=== PATIENT | female | born 1950 | race Caucasian/White ===

== ENCOUNTER 2017-06-19 19:10 | Inpatient (IN) | payer SELFPAY ==
[2017-06-19] MEDS ORDERED: ONDANSETRON DISINTEGRATING 4 MG TAB PO PRN (20:23)
[2017-06-19] MEDS ORDERED: HYDROmorphone HCL/NS 0.5 MG/ML SYR IVP PRN (20:23)
[2017-06-19] MEDS ORDERED: PROMETHAZINE HCL 25 MG/ML INJ IVP PRN (20:23)
[2017-06-19] MEDS ORDERED: ONDANSETRON 4 MG/2 ML VIAL IVP PRN (20:23)
[2017-06-19] MEDS ORDERED: ACETAMINOPHEN 325 MG TAB PO PRN (20:23)
--- NOTE | 2017-06-19 20:56 | GHP ---
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 She is close to [facility]. She presented to urgent care today with ongoing abdominal pain. In January of 2017, she was running a half marathon, and she had severe abdominal pain. She persever ed and finished the marathon, setting a personal record. However, when she returned to her hotel [facility], she had bloody diarrhea. This was chalked up to ischemic colitis given the clinical scenario and further imaging was not undertaken. She has a history of normal colonoscopies in the past. Over the last couple of months, she has had increasing abdominal pain. She has had retching. She jordan s had an inability to take deep breaths. She has had a cough in the morning. She has had some nause a. She feels her pants are bit looser. She has had a couple episodes the night sweats. She has no family history of cancer. She still has her ovaries. She has not been a smoker. She is done breast self-exams and had normal mammographies in the past. The last was 2 years ago. She has not had fever or chills. In urgent care today, she had a CT scan showing diffusely metastatic disease as evidenced by peritone al studding and a couple of subdiaphragmatic masses. When I speak with her, her primary complaint is pleuritic pain. Notably, she has been eating and dri nking reasonably well. REVIEW OF SYSTEMS: A complete 10-point review of systems was conducted and negative except as noted in the HPI. PAST MEDICAL HISTORY: 1. Depression. 2. Hypothyroidism. ALLERGIES: No known drug allergies. MEDICATIONS: Wellbutrin, Celexa, and levothyroxine. SOCIAL HISTORY: Occasional alcohol. No tobacco. 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 FAMILY HISTORY: Negative for cancer. PHYSICAL EXAMINATION: PRESENTING VITALS: Pulse about 85, blood pressure 120/80, breathing 16 times a minute, afebrile. GENERAL: No acute distress. Thin. HEENT: Sclerae anicteric. Oropharynx lubna r. Mucous membranes moist. NECK: Supple. No lymphadenopathy or JVD. LUNGS: Clear to auscultatio n bilaterally. HEART: S1, S2. ABDOMEN: Soft, nontender, nondistended. LOWER EXTREMITIES: Withou t edema. Calves are nontender. SKIN: Without rash. NEUROLOGIC: Exam is nonfocal. LABORATORY DATA: Her outpatient labs were notable for an elevated alkaline phosphatase. She had an outpatient CAT scan that was notable for peritoneal studding and subdiaphragmatic masses. I have discussed the case with the outpatient PA from [facility] in [place]. ASSESSMENT AND PLAN: A 66-year-old female, who presents with abdominal pain, likely diffuse metastat ic cancer, as well as pleuritic pain. 1. Pleuritic pain. In this context, concerning for pulmonary embolism. I have ordered a CT angio o f the chest to evaluate. 2. Peritoneal studding. The patient needs a tissue diagnosis. Her is going to bring in a C D ROM of the CAT scan, which can be reviewed by Radiology and planned for intervention. 3. Weight loss. This is attributable to the above process. 4. Hypothyroidism. We will continue her medication and check a TSH. 5. Prophylaxis. Pharmacologic prophylaxis is indicated, although I have written for SCDs now, given the likely upcoming procedures. DISPOSITION: Inpatient status. /[id number]/MODL
[2017-06-19] MEDS ORDERED: IOPAMIDOL (ISOVUE 370) 100 ML BTL IV ONE (21:31)
[2017-06-19] MEDS ORDERED: DIAZEPAM 5 MG/ML 1 ML SYR IVP PRN (21:39)
[2017-06-19] MEDS: HYDROmorphone HCL/NS 0.5 MG/ML SYR IVP PRN (22:28)
[2017-06-20] MEDS: HYDROmorphone HCL/NS 0.5 MG/ML SYR IVP PRN ×4 (00:29→14:53)
[2017-06-20] MEDS: oxyCODONE IR 5 MG TAB PO PRN ×5 (00:35→23:42)
[2017-06-20] MEDS: LEVOTHYROXINE 50 MCG TAB PO SCH (04:57)
[2017-06-20 05:35] LABS: PLATELET COUNT 401 10^3/uL (150-400)
[2017-06-20 05:44] LABS: INR 1.04 (0.83-1.16); PROTIME(PATIENT) 13.8 SEC (12.0-15.0)
[2017-06-20] MEDS: CITALOPRAM 20 MG TAB PO SCH (08:32)
[2017-06-20] MEDS: buPROPion XL 150 MG TAB PO SCH (08:33)
[2017-06-20] MEDS ORDERED: NON-FORMULARY NEW DRUG (Bupropion Hcl [Wellbutrin Xl] 300 MG) PO SCH (09:00)
[2017-06-20] MEDS ORDERED: NON-FORMULARY NEW DRUG (Citalopram Hydrobromide [Citalopram Hbr] 40 MG) PO SCH (09:00)
--- NOTE | 2017-06-20 09:10 | PDMN ---
Medical Necessity Medical necessity: [facility] oncology: New Dg. abd pain with likely diffuse metsastatic cancer as well as pleuritic pain req further eval , monitoring and tx.
--- NOTE | 2017-06-20 11:56 | HOSPPROG ---
Hospitalist Progress Note Assessment/Plan: 66 yo female who had abd and chest pain and a CT Abd/Pelvis at [facility] care c/w Peritoneal Studding New Imaging: CT Chest: no P.E., metastases to Lung (RML, RLL), Liver. #Malignancy, Metastatic #Acute Pain Syndrome #Hypothyroidism #Hx of Depression -I discussed with IR need for tissue Diagnosis. They will review imaging and obtain tissue diagnosis -Will obtain a Onc consultation -pain mgm: will add MS Contin to regimen -SCD's for now, can changed to Lovenox once procedures completed -Inpatient. Subjective: Pain is modestly controlled. No SOB. Objective: Vital Signs Temp Pulse Resp BP Pulse Ox 37.0 C 69 17 116/66 95 06/20/17 11:49 06/20/17 11:49 06/20/17 11:49 06/20/17 11:49 06/20/17 11:49 Laboratory Results 06/20/17 04:28 06/20/17 04:28 06/19/17 06/20/17 06/21/17 05:59 05:59 05:59 Intake Total 250 Output Total 900 Balance -650 PT 13.8 SEC (12.0-15.0) 06/20/17 04:28 INR 1.04 (0.83-1.16) 06/20/17 04:28 - Physical Exam Constitutional: no apparent distress Eyes: PERRL, EOMI Ears, Nose, Mouth, Throat: moist mucous membranes, hearing normal Cardiovascular: regular rate and rhythym, No edema Respiratory: no respiratory distress, no rales or rhonchi Gastrointestinal: normoactive bowel sounds, soft, non-tender abdomen Genitourinary: no bladder fullness Skin: warm Neurologic: AAOx3 Psychiatric: interacting appropriately, not anxious, not encephalopathic, thought process linear Lymph, Heme, Immunologic: No petechiae ICD10 Worksheet Patient Problems: Problems Problem Status Onset Malignancy Acute - ICD10 Problem Qualifiers (1) Malignancy
[2017-06-20] MEDS ORDERED: NS W/ 20 KCl/L 1,000 ML IV SCH (12:00)
--- NOTE | 2017-06-20 13:44 | ASMTCMCOM ---
CM Note CM Note Notes: Pt still being worked up for definitive diagnosis. She will have oncology consult. 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 They currently live in [place] and are building home in [place]. DC needs not clear yet. Pt has been living very independant, active life. CM will follow. Date Signed: 06/20/2017 01:44 PM Electronically Signed By:Dee Dee Soto RN
[2017-06-20] MEDS ORDERED: MIDAZOLAM 2 MG/2 ML VIAL ONE (15:31)
[2017-06-20] MEDS ORDERED: FLUMAZENIL 0.5 MG/5 ML MDV IVP ONE (15:31)
[2017-06-20] MEDS ORDERED: NALOXONE HCL 0.4 MG/ML INJ ONE (15:31)
[2017-06-20] MEDS ORDERED: fentaNYL 100 MCG/2 ML INJ ONE (15:31)
[2017-06-20] MEDS ORDERED: MEPERIDINE 25 MG/ML SYR IVP PRN (15:41)
[2017-06-20] MEDS ORDERED: MIDAZOLAM 2 MG/2 ML VIAL IVP PRN (15:41)
[2017-06-20] MEDS ORDERED: GLUCAGON HCL 1 MG VIAL IVP PRN (15:41)
[2017-06-20] MEDS ORDERED: ALTEPLASE 2 MG VIAL IVP PRN (15:41)
[2017-06-20] MEDS ORDERED: FLUMAZENIL 0.5 MG/5 ML MDV IVP PRN (15:41)
[2017-06-20] MEDS ORDERED: fentaNYL 100 MCG/2 ML INJ IVP PRN (15:41)
[2017-06-20] MEDS ORDERED: NALOXONE HCL 0.4 MG/ML INJ IVP PRN (15:41)
[2017-06-20] MEDS ORDERED: PROTAMINE SULFATE 50 MG/5 ML VIAL IVP PRN (15:41)
[2017-06-20] MEDS ORDERED: HEPARIN 10,000 UNIT/10 ML MDV (1,000 UNIT/ML) IVP PRN (15:41)
[2017-06-20] MEDS ORDERED: NS 1,000 ML IV SCH (15:45)
[2017-06-20] MEDS ORDERED: LIDOCAINE 1% 300 MG/30 ML SDV ONE (16:13)
--- NOTE | 2017-06-20 18:16 | GCON ---
[f rep st] CONSULTATION ONCOLOGY CONSULTATION REFERRING PHYSICIAN: Maulik Courtney MD REASON FOR VISIT: Liver mass and peritoneal lesion. 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 Symptoms s tarted for her back in January while she was running a marathon. She was having severe abdominal sudarshan n during the marathon, but was able to complete it with an excellent time. She had some bloody diarr hea afterwards, but then that resolved fairly rapidly. The pain also seemed to get better. She did not seek any further care since she otherwise was feeling fine at the time. She was doing well until March when she started training again for another marathon she started to have abdominal discomfo rt again. She has had occasional night sweats. Typically no nausea but occasionally some retching i n the morning, but only a few times. She denies any weight loss. She has actually gained about 5 po unds. She maybe had a little more constipation, but no other changes in bowel habits. No further bl ood in the stool. She has been getting routine colonoscopies, last one was about 6 years ago. Becau se of the increasing problems, she has sought out medical care and a CT scan was obtained which showe d what appeared to be peritoneal carcinomatosis and a mass in the liver. She is about to go for a bi opsy of the liver mass. ALLERGIES: She has no known drug allergies. HOME MEDICATIONS: Include citalopram, bupropion, and levothyroxine. CHRONIC ILLNESSES: She had severe depression in the past, but that is under good control, hypothyroi dism, and irritable bowel syndrome. SURGICAL HISTORY: Includes intussusception with an appendectomy at age 9 months. She has also had s ome repairs of injury such as fractured wrist, but no other abdominal surgeries. 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 Her is also a physician. She drinks a lcohol occasionally, generally beer, but does not smoke. FAMILY HISTORY: Mother at age 73 from cerebral hemorrhage secondary amyloidosis. Father a t age 89 from age related issues. She has 1 daughter. REVIEW OF SYSTEMS: 10-point review of systems performed. Pertinent positives HPI, otherwise negativ e. PHYSICAL EXAM: VITAL SIGNS: She is afebrile, blood pressure is 99/60, pulse is 67. GENERAL: She i s a well-appearing woman in no distress. HEENT: Unremarkable. LUNGS: Clear. CARDIAC: Regular. ABDOMEN: Relatively flat and soft. Little bit of fullness in the right upper quadrant, but nontende r. Bowel sounds are present. EXTREMITIES: No edema. NEUROLOGIC: Nonfocal. LABORATORY: Hemoglobin is 10.6 with MCV of 83. Chemistry panel was unremarkable. Outside CT was reviewed with Radiology and shows as per HPI. CT angiogram, which I reviewed with the patient, shows a least 1 clear lesion in the right middle lobe 23 x 17 mm. There is right lower lob e 12 x 11 mm nodule. In the upper abdomen, there are 2 liver lesions, one 6 x 5 cm, the other one 4. 6 x 4.7 cm. With reviewing the CT with Radiology, there is no clear-cut source of the malignancy at this time. IMPRESSION: 1. 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 2. Intermittent abdominal pain, possibly a partial obstruction, seems now resolved. I agree with the next step being a biopsy of this mass to try and get a better idea of what we are de aling with here. With the peritoneal carcinomatosis, GI and sources are highest likelihood. Her adnexa and pelvis look unremarkable, but cannot entirely rule out a primary peritoneal. However, typ ically these do not metastasize into the liver. This also could be atypical lesions such as well dif ferentiated neuroendocrine cancer such as carcinoid, but 1 would expect more flushing and diarrhea wi th a carcinoid syndrome. They asked whether or not a lymphoma is on the differential, and it is alth ough it would be an uncommon presentation. Other cancers that could present oddly include melanoma. If she tolerates the biopsy well and she is able the eat and move her bowels tomorrow, she could go home and can follow up. She is hoping to follow up Dr. Rock since she has [facility] past. /[id number]/MODL
--- NOTE | 2017-06-20 19:29 | PDRADPN ---
Radiology Procedure Note Date of Procedure: 06/20/17 Radiologist: Jordan Piña Anesthesia: IV Sedation Pre-op Diagnosis: Liver mass Post-op Diagnosis: Same Indication: Unknown primary Procedure: Liver mass biopsy Finding(s): 18-ga cores x6 taken from large right posterior liver mass. Tract embolized with gelfoam torpedos x3. Inf/Abcess present in the surg proc area at time of surgery?: No Complications: No immediate Specimen(s): 18-ga cores x6 placed in formalin
[2017-06-20] MEDS: morphINE SR 15 MG TAB PO SCH (20:29)
[2017-06-21] MEDS: LEVOTHYROXINE 50 MCG TAB PO SCH (04:45)
[2017-06-21] MEDS: oxyCODONE IR 5 MG TAB PO PRN ×2 (04:45→08:05)
[2017-06-21] MEDS: buPROPion XL 150 MG TAB PO SCH (08:05)
[2017-06-21] MEDS: morphINE SR 15 MG TAB PO SCH (08:05)
[2017-06-21] MEDS: CITALOPRAM 20 MG TAB PO SCH (08:05)
[2017-06-21 08:50] VITALS: BP 120/68; PULSE 86; RESP 15; TEMP 99.3; O2SAT 92
--- NOTE | 2017-06-21 10:20 | ASMTCMCOM ---
CM Note CM Note Notes: Pt ready for DC today following biopsy. Plan is to f/u with outpt oncologist, Dr Rock. Met brieflt with . No DC needs identified. Date Signed: 06/21/2017 10:19 AM Electronically Signed By:Leora Jay LCSW
--- NOTE | 2017-06-21 11:58 | PDDCSUM ---
Discharge Summary Discharge Summary: 66 yo female who had abd and chest pain and a CT Abd/Pelvis at [facility] care c/w Peritoneal Studding. CT Chest c/w no P.E., metastases to Lung (RML, RLL), Liver. She had liver biopsy on 06/21 pathology pending pain is well controlled she will f/u with Dr. Rock #Malignancy, Metastatic #Acute Pain Syndrome #Hypothyroidism #Hx of Depression PE. VSS NAD EOMI MMM AAOX3 NORMAL WORK OF BREATHING ABD DOES NOT APPEAR DISTENDED NO FOCAL WEAKNESS MEDS: SEE MED REC. TOTAL TIME SPENT ON D/C IS 35 MINUTES
== END 2017-06-21 11:05 | disposition home or self-care (01) | DRG 437 ==
LOC: F1N 19:21
PROVIDERS: ADMIT Internal Medicine; ATTEND Internal Medicine
PROC: 0FB03ZX Excision of Liver, Percutaneous Approach, Diagnostic (ICD-10-PCS; principal; 2017-06-21)
DX: C78.7 Secondary malignant neoplasm of liver and intrahepatic bile duct (principal); D48.4 Neoplasm of uncertain behavior of peritoneum; E03.9 Hypothyroidism, unspecified; G89.3 Neoplasm related pain (acute) (chronic); F32.9 Major depressive disorder, single episode, unspecified; R63.4 Abnormal weight loss
CPT/HCPCS: J1170; J2250; J2310; J3010; J3360; Q9967

== ENCOUNTER 2017-06-23 10:37 | Emergency (ER) | payer SELFPAY ==
[2017-06-23] MEDS ORDERED: IOPAMIDOL (ISOVUE 370) 100 ML BTL IV ONE (11:22)
--- NOTE | 2017-06-23 11:58 | EDPHY ---
H & P Stated Complaint: Sent in CTA of chest by oncologist to r/o PE Time Seen by Provider: 06/23/17 11:04 HPI/ROS: CHIEF COMPLAINT: Concerns over possible pulmonary embolus HISTORY OF PRESENT ILLNESS: 66-year-old female with recent diagnosis of possible peritoneal cancer ( pathology pending) with with metastases to lung, liver, arrives complaining of new right lower chest pain, dyspnea. Concerns over pulmonary embolus. She had recent hospitalization recent liver biopsy. She denies back or flank pain, headache, fever, chills. PRIMARY CARE PROVIDER: Primary Oncology Dr. 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 PHYSICAL EXAM (Prior to examination, patient consented to physical exam, hands were washed and my usual and customary physical exam procedures followed) 1) GENERAL: Well-developed, well-nourished, alert and oriented. Appears to be in no acute distress. Lying in a right lateral, position 2) HEAD: Normocephalic, atraumatic 3) HEENT: Pupils equal, round, reactive to light bilaterally. Sclera anicteric. 4) NECK: Full range of motion, no meningeal signs. 5) LUNGS: Clear auscultation bilaterally, no wheezes, no rhonchi, no retractions. Chest wall nontender. 6) HEART: Regular rate and rhythm, no murmur, no heave, no gallop. 7) ABDOMEN: No guarding, no rebound, no focal tenderness, negative McBurney's, negative Sue's, negative Rovsing's, negative peritoneal sign, 8) MUSCULOSKELETAL: Moving all extremities, no focal areas of tenderness, no obvious trauma. No peripheral edema or discoloration. 9) BACK: No CVA tenderness, no midline vertebral tenderness, no fluctuance, no step-off, no obvious trauma, no visual or palpable abnormality. 10) SKIN: No rash, no petechiae. 11) Psychiatric: Patient is oriented X 3, there is no agitation. 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 - Social History Smoking Status: Never smoked Constitutional: Initial Vital Signs Temperature (C) 37 C 06/23/17 10:45 Heart Rate 85 06/23/17 10:45 Respiratory Rate 18 06/23/17 10:45 Blood Pressure 118/72 06/23/17 10:45 O2 Sat (%) 86 L 06/23/17 10:45 O2 Delivery Mode Room Air O2 (L/minute) 2 Allergies/Adverse Reactions: No Known Allergies Allergy (Verified 06/23/17 10:52) Home Medications: Medication Instructions Recorded Bupropion HCl [Wellbutrin Xl] 300 mg PO DAILY 06/19/17 Citalopram Hydrobromide 40 mg PO DAILY 06/19/17 [Citalopram HBr] Levothyroxine [Synthroid 50 mcg 50 mcg PO DAILY06 06/19/17 (*)] Diazepam [Valium 5 MG (*)] 5 mg PO TID PRN #30 tab 06/21/17 Ondansetron Odt [Zofran Odt 4 mg 4 mg PO Q4HRS PRN #30 tab 06/21/17 (*)] morphINE SR [Ms Contin/Oramorph 15 15 mg PO TID #90 tab 06/21/17 mg (*)] oxyCODONE IR [Oxycodone Ir (*)] 5 - 10 mg PO Q3HRS PRN #40 tab 06/21/17 Acyclovir [Zovirax 400 mg (*)] 400 mg PO TID PRN 06/23/17 Medical Decision Making - Diagnostics Imaging Results: Imaging Impressions Chest/Thorax CTA 06/23/17 11:15 Impression: 1. No evidence of pulmonary embolic disease. 2. Increase in right lower lung opacity with associated right pleural effusion. This may reflect progression in atelectasis or possibly developing pneumonia. This could also reflect reaction to the liver biopsy. 3. See above report for additional findings. Results called and discussed with Julio C WALKER on 06/23/2017 12:31 Images reviewed by myself ED Course/Re-evaluation: 11:04 a.m.: Old medical records reviewed. High clinical suspicion for pulmonary embolus given patient's history of malignancy, complaints of dyspnea, right sided chest pain, noted hypoxia. Subsequently CT angiography was obtained on this patient. Case discussed with secondary supervising physician Dr. Bib Bond The patient was re-evaluated after discussing her imaging studies, we discussed her continuing hypoxia and pain. We discussed admission to the hospital. We discussed possible challenges of obtaining outpatient oxygen from the emergency department on a Saturday. Ultimately she agrees with hospital admission. I spoke with the hospitalist, Monique, admit to Dr. Hood 3:15 p.m.: Hospitalist Dr. Hood has consulted, see his note. After hospitals consulted the patient elected to be discharged home. The disease case manager rn attempted to get home oxygen delivery, however due to [id number] expenses the, elected to forego home oxygen at this time the patient would like to be discharged. I re-evaluated the patient she maintaining saturations of 87 % on room air, breathing comfortably show no signs of respiratory distress. Patient states that she will plan on following up with a primary care provider tomorrow (Saturday) and if she develops worsening pain, dyspnea she will return to the ER. Have offered admission however she declines it. 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 I believe them both to have decision- making capacity. - Data Points Laboratory Results: Laboratory Results 06/23/17 11:10 06/23/17 11:10 06/23/17 06/23/17 06/23/17 12:30 12:30 11:10 WBC RBC Hgb POC Hgb Hct POC Hct MCV MCH MCHC RDW Plt Count MPV Neut % (Auto) Lymph % (Auto) Barnes % (Auto) Eos % (Auto) Baso % (Auto) Nucleat RBC Rel Count Absolute Neuts (auto) Absolute Lymphs (auto) Absolute Monos (auto) Absolute Eos (auto) Absolute Basos (auto) Absolute Nucleated RBC Immature Gran % Immature Gran # POC Sodium Sodium 132 mEq/L L mEq/L (135-145) POC Potassium Potassium 4.4 mEq/L mEq/L (3.5-5.2) POC Chloride Chloride 95 mEq/L L mEq/L (97-110) Carbon Dioxide 27 mEq/l mEq/l (22-31) Anion Gap 10 mEq/L mEq/L (8-16) POC BUN BUN 10 mg/dL mg/dL (7-23) Creatinine 0.7 mg/dL mg/dL (0.6-1.0) POC Creatinine Estimated GFR > 60 Glucose 99 mg/dL mg/dL (70-100) POC Glucose Calcium 9.6 mg/dL mg/dL (8.5-10.4) Total Bilirubin 0.5 mg/dL mg/dL (0.1-1.4) Conjugated Bilirubin 0.3 mg/dL mg/dL (0.0-0.5) Unconjugated Bilirubin 0.2 mg/dL mg/dL (0.0-1.1) AST 30 IU/L IU/L (14-46) ALT 31 IU/L IU/L (9-52) Alkaline Phosphatase 141 IU/L H IU/L (38-126) Troponin I < 0.012 ng/mL ng/mL (0.000-0.034) Total Protein 6.9 g/dL g/dL (6.3-8.2) Albumin 3.8 g/dL g/dL (3.5-5.0) Lipase 58 IU/L IU/L (23-300) Procalcitonin 0.07 ng/mL ng/mL (0.02-0.10) 06/23/17 06/23/17 11:10 11:06 WBC 5.80 10^3/uL 10^3/uL (3.80-9.50) RBC 4.23 10^6/uL 10^6/uL (4.18-5.33) Hgb 11.3 g/dL L g/dL (12.6-16.3) POC Hgb 11.9 gm/dL L gm/dL (12.6-16.3) Hct 35.0 % L % (38.0-47.0) POC Hct 35 % L % (38-47) MCV 82.7 fL fL (81.5-99.8) MCH 26.7 pg L pg (27.9-34.1) MCHC 32.3 g/dL L g/dL (32.4-36.7) RDW 12.8 % % (11.5-15.2) Plt Count 449 10^3/uL H 10^3/uL (150-400) MPV 8.1 fL L fL (8.7-11.7) Neut % (Auto) 67.3 % % (39.3-74.2) Lymph % (Auto) 19.7 % % (15.0-45.0) Barnes % (Auto) 10.2 % % (4.5-13.0) Eos % (Auto) 1.6 % % (0.6-7.6) Baso % (Auto) 1.0 % % (0.3-1.7) Nucleat RBC Rel Count 0.0 % % (0.0-0.2) Absolute Neuts (auto) 3.91 10^3/uL 10^3/uL (1.70-6.50) Absolute Lymphs (auto) 1.14 10^3/uL 10^3/uL (1.00-3.00) Absolute Monos (auto) 0.59 10^3/uL 10^3/uL (0.30-0.80) Absolute Eos (auto) 0.09 10^3/uL 10^3/uL (0.03-0.40) Absolute Basos (auto) 0.06 10^3/uL 10^3/uL (0.02-0.10) Absolute Nucleated RBC 0.00 10^3/uL 10^3/uL (0-0.01) Immature Gran % 0.2 % % (0.0-1.1) Immature Gran # 0.01 10^3/uL 10^3/uL (0.00-0.10) POC Sodium 133 mEq/L L mEq/L (135-145) Sodium POC Potassium 4.0 mEq/L mEq/L (3.3-5.0) Potassium POC Chloride 93 mEq/L L mEq/L (97-110) Chloride Carbon Dioxide Anion Gap POC BUN 9 mg/dL mg/dL (7-23) BUN Creatinine POC Creatinine 0.8 mg/dL mg/dL (0.6-1.0) Estimated GFR Glucose POC Glucose 101 mg/dL H mg/dL (70-100) Calcium Total Bilirubin Conjugated Bilirubin Unconjugated Bilirubin AST ALT Alkaline Phosphatase Troponin I Total Protein Albumin Lipase Procalcitonin Point of Care Test Results: 06/23/17 11:06 POC Sodium 133 L POC Potassium 4.0 POC Chloride 93 L POC BUN 9 POC Creatinine 0.8 POC Glucose 101 H Departure - Departure Disposition: Home, Routine, Self-Care Clinical Impression: Hypoxemia, Right-sided chest pain Condition: Good Instructions: Hypoxia (ED) Referrals: DR VASHTI [Other] - As per Instructions
[2017-06-23 12:48] LABS: PLATELET COUNT 449 10^3/uL (150-400)
--- NOTE | 2017-06-23 13:39 | CPEKG ---
Heart Rate: 63 RR Interval: 952 P-R Interval: 144 QRSD Interval: 72 QT Interval: 412 QTC Interval: 422 P Wagner: 74 QRS Wagner: 68 T Wave Wagner: 58 EKG Severity - OTHERWISE NORMAL ECG - EKG Impression: SINUS RHYTHM EKG Impression: VENTRICULAR PREMATURE COMPLEX EKG Impression: LOW VOLTAGE IN FRONTAL LEADS Electronically Signed By: Kobe Kent 23-Jun-2017 18:33:53
--- NOTE | 2017-06-23 14:31 | PDHOSCONS ---
History and Physical - Chief Complaint Pleuritic right sided chest pain - History of Present Illness This is a 66 yo female well who was recently discharged from our service with a new diagnosis of metastatic malignancy, primary unknown. She had a liver biopsy for tissue sample. She has known diaphragmatic metastasis. In the E.D. a CTA chest was negative for P.E. She was found to be hypoxic requiring 2 L of O2. CTA showed a small right sided pleural effusion. No obvious infiltrate. She has not had a fever. She had not had a cough. She does not have leukocytosis. She has required increased pain meds and she has pinpoint pupils. She reports some pain radiating to her right shoulder. She denies substernal chest pain, palpitations, leg swelling, n/v/d, or other. 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 FmHx: no hx of cancer History Information - Allergies/Home Medication List Allergies/Adverse Reactions: No Known Allergies Allergy (Verified 06/23/17 10:52) Home Medications: Bupropion HCl [Wellbutrin Xl] 300 mg PO DAILY 06/19/17 [Last Taken 06/23/17] Citalopram Hydrobromide [Citalopram HBr] 40 mg PO DAILY 06/19/17 [Last Taken ] Levothyroxine [Synthroid 50 mcg (*)] 50 mcg PO DAILY06 06/19/17 [Last Taken ] Acyclovir [Zovirax 400 mg (*)] 400 mg PO TID PRN 06/23/17 [Last Taken 06/23/17 11:00] I have personally reviewed and updated: medical history, social history - Social History Smoking Status: Never smoked Review of Systems Review of Systems: ROS: 10pt was reviewed & negative except for what was stated in HPI & below Physical Exam Physical Exam: Temp Pulse Resp BP Pulse Ox 37 C 66 18 121/78 H 100 06/23/17 10:45 06/23/17 12:00 06/23/17 12:00 06/23/17 12:00 06/23/17 12:00 Constitutional: no apparent distress, appears nourished Eyes: PERRL, EOMI, other (pinpoint pupils) Ears, Nose, Mouth, Throat: moist mucous membranes, hearing normal Cardiovascular: regular rate and rhythym, No JVD, No edema Respiratory: no respiratory distress, clear to auscultation (mildly decreased right lung base), No reduced air movement, No expiratory wheeze, No inspiratory crackles, No bronchial breath sounds, No rhonchi Gastrointestinal: No tenderness, No distension Skin: warm Musculoskeletal: full muscle strength Neurologic: AAOx3 Psychiatric: interacting appropriately, not anxious, not encephalopathic Lab Data & Imaging Review 06/23/17 11:10 06/23/17 11:10 WBC 5.80 10^3/uL (3.80-9.50) 06/23/17 11:10 RBC 4.23 10^6/uL (4.18-5.33) 06/23/17 11:10 Hgb 11.3 g/dL (12.6-16.3) L 06/23/17 11:10 POC Hgb 11.9 gm/dL (12.6-16.3) L 06/23/17 11:06 Hct 35.0 % (38.0-47.0) L 06/23/17 11:10 POC Hct 35 % (38-47) L 06/23/17 11:06 MCV 82.7 fL (81.5-99.8) 06/23/17 11:10 MCH 26.7 pg (27.9-34.1) L 06/23/17 11:10 MCHC 32.3 g/dL (32.4-36.7) L 06/23/17 11:10 RDW 12.8 % (11.5-15.2) 06/23/17 11:10 Plt Count 449 10^3/uL (150-400) H 06/23/17 11:10 MPV 8.1 fL (8.7-11.7) L 06/23/17 11:10 Neut % (Auto) 67.3 % (39.3-74.2) 06/23/17 11:10 Lymph % (Auto) 19.7 % (15.0-45.0) 06/23/17 11:10 Riley % (Auto) 10.2 % (4.5-13.0) 06/23/17 11:10 Eos % (Auto) 1.6 % (0.6-7.6) 06/23/17 11:10 Baso % (Auto) 1.0 % (0.3-1.7) 06/23/17 11:10 Nucleat RBC Rel Count 0.0 % (0.0-0.2) 06/23/17 11:10 Absolute Neuts (auto) 3.91 10^3/uL (1.70-6.50) 06/23/17 11:10 Absolute Lymphs (auto) 1.14 10^3/uL (1.00-3.00) 06/23/17 11:10 Absolute Monos (auto) 0.59 10^3/uL (0.30-0.80) 06/23/17 11:10 Absolute Eos (auto) 0.09 10^3/uL (0.03-0.40) 06/23/17 11:10 Absolute Basos (auto) 0.06 10^3/uL (0.02-0.10) 06/23/17 11:10 Absolute Nucleated RBC 0.00 10^3/uL (0-0.01) 06/23/17 11:10 Immature Gran % 0.2 % (0.0-1.1) 06/23/17 11:10 Immature Gran # 0.01 10^3/uL (0.00-0.10) 06/23/17 11:10 POC Sodium 133 mEq/L (135-145) L 06/23/17 11:06 Sodium 132 mEq/L (135-145) L 06/23/17 11:10 POC Potassium 4.0 mEq/L (3.3-5.0) 06/23/17 11:06 Potassium 4.4 mEq/L (3.5-5.2) 06/23/17 11:10 POC Chloride 93 mEq/L (97-110) L 06/23/17 11:06 Chloride 95 mEq/L (97-110) L 06/23/17 11:10 Carbon Dioxide 27 mEq/l (22-31) 06/23/17 11:10 Anion Gap 10 mEq/L (8-16) 06/23/17 11:10 POC BUN 9 mg/dL (7-23) 06/23/17 11:06 BUN 10 mg/dL (7-23) 06/23/17 11:10 Creatinine 0.7 mg/dL (0.6-1.0) 06/23/17 11:10 POC Creatinine 0.8 mg/dL (0.6-1.0) 06/23/17 11:06 Estimated GFR > 60 06/23/17 11:10 Glucose 99 mg/dL (70-100) 06/23/17 11:10 POC Glucose 101 mg/dL (70-100) H 06/23/17 11:06 Calcium 9.6 mg/dL (8.5-10.4) 06/23/17 11:10 Total Bilirubin 0.5 mg/dL (0.1-1.4) 06/23/17 12:30 Conjugated Bilirubin 0.3 mg/dL (0.0-0.5) 06/23/17 12:30 Unconjugated Bilirubin 0.2 mg/dL (0.0-1.1) 06/23/17 12:30 AST 30 IU/L (14-46) 06/23/17 12:30 ALT 31 IU/L (9-52) 06/23/17 12:30 Alkaline Phosphatase 141 IU/L (38-126) H 06/23/17 12:30 Troponin I < 0.012 ng/mL (0.000-0.034) 06/23/17 12:30 Total Protein 6.9 g/dL (6.3-8.2) 06/23/17 12:30 Albumin 3.8 g/dL (3.5-5.0) 06/23/17 12:30 Lipase 58 IU/L (23-300) 06/23/17 12:30 Assessment & Plan Assessment: #Malignancy, Pathology is pending #Pleuritic right sided pain #Small right sided Pleural Effusion #Hypoxemia #Malignancy related pain and opiate pain med use Plan: -The etiology of the pt's pain is unclear. It is most likely referred from her diaphragm mets. It could also be related to the liver mass biopsy vs pleural effusion vs costochondritis -The hypoxemia is most likely from opiate pain meds as this improved with waking up. this however could also be due to the small pleural effusion -She does not have leukocytosis, has not had a fever, and I dont believe that her hypoxemia is due to infection. I have sent a procalcitonin which can be followed -No E/O of P.E. on CTA Chest We discussed options to include admission and overnight observation. I offered a trial of NSAIDS, Lidocaine Patch, and opiates. As for the hypoxemia and effusion, we would re-evaluate need for further treatment pending her clinical course and then consider thoracentesis if needed. After discussion and options and as she was no longer hypoxic, she and her who are both physicians chose outpatient follow up. I've discussed with the E.D. team. She is being set up with O2 as well as meds per above. She has f/u with Oncology already set up. If she clinically gets worse, then she will return to the E.D.
[2017-06-23 14:33] VITALS: BP 109/71; PULSE 77; RESP 16; TEMP 98.6; O2SAT 91
--- NOTE | 2017-06-23 18:13 | ASDISCHSUM ---
Discharge Information Plan Status:Home with No Needs Medically Cleared to Leave: Discharge Date:06/23/2017 03:40 PM CM D/C Disposition:Home, Routine, Self-Care ADT D/C Disposition:Home, Routine, Self-Care Projected Discharge Date:06/23/2017 03:40 PM Transportation at D/C:Family Discharge Delay Reason: Follow-Up Date:06/23/2017 03:40 PM Discharge Slot: Final Diagnosis: Placement Information Patient Contact Information Contact Name:GUERLINE Relationship: Address:[address] Work Phone: City:[place] Alternate Phone: [facility]/Zip Code:[place] [address] Email: Financial Information Financial Class:Self-Pay Primary Plan Desc:SELF PAY Primary Plan Number: Secondary Plan Desc: Secondary Plan Number: Assessment Information [facility] Progress Note CM Note CM Note Notes: Requested to assist patient with setting up home oxygen. Spoke with patient and her Jules at bedside. Patient's health insurance is provided through [employer], which is a "like a co-op" and so they would need to self pay for the home O2 and then submit receipt for reimbursement, and they are aware that most companies and clinics do not contract with [employer]. When we discussed approximate cost of self-pay, pt and Jules decided that because she "only needed the oxygen for a couple of days," they want to discharge home without home oxygen and follow-up with her PCP Carrie Trujillo NP, at [facility] tomorrow. ED Provider Jr and Hospitalist Dr Hood aware and okay with their dc plan. Patient provided a prescription for home oxygen and provided a list of home oxygen companies just in case they change their mind when they get home or if they can't get in with PCP tomorrow. This CM to contact pt's PCP office tomorrow and fax over ED report if needed. Date Signed: 06/23/2017 06:11 PM Electronically Signed By:Shanda Seaman RN Intervention Information
--- NOTE | 2017-06-24 09:46 | ASMTCMCOM ---
CM Note CM Note Notes: 06/24/17: Spoke with patient ([phone]) this morning and she states "I'm doing okay, I don't feel short of breath and as long as my pain is controlled I feel like I can breathe deeper into my lungs." Pt states she plans to hold off on home oxygen at this time and plans to follow up with her PCP Carrie Trujillo NP at [facility] (o:[phone],fax:[phone]) tomorrow 06/25/17. Spoke w/Chrissie at [facility] and faxed over ED report per patient and office request. Pt also has appt with her oncologist, Dr Rock ([phone]) at [facility] in [place] on Saturday06/26/17. CM available for further assistance if needed. Date Signed: 06/24/2017 09:45 AM Electronically Signed By:Shanda Seaman RN
== END 2017-06-23 15:40 | disposition home or self-care (01) ==
LOC: UNDOADMOB 13:28
DX: R07.9 Chest pain, unspecified (principal); R09.02 Hypoxemia
CPT/HCPCS: 82947-QW; Q9967

== ENCOUNTER → 2017-07-03 | Outpatient (CLI) | payer OTHER ==
[~2017-07-03] MED LIST: IOPAMIDOL (ISOVUE-300) 100 ML BTL ONE
== END ==
LOC: FIMAGING 10:02
PROVIDERS: ATTEND Internal Medicine Hematology & Oncology
DX: C48.2 Malignant neoplasm of peritoneum, unspecified (principal)
CPT/HCPCS: Q9967

== ENCOUNTER 2017-07-05 13:11 | Observation (INO) | payer SELFPAY ==
[2017-07-05] MEDS ORDERED: ONDANSETRON DISINTEGRATING 4 MG TAB PO PRN (15:06)
[2017-07-05] MEDS ORDERED: ACETAMINOPHEN 325 MG TAB PO PRN (15:06)
[2017-07-05] MEDS ORDERED: ONDANSETRON 4 MG/2 ML VIAL IVP PRN (15:06)
[2017-07-05] MEDS ORDERED: METHYLNALTREXONE BROMIDE 12 MG/0.6 ML INJ SC ONE (15:06)
[2017-07-05] MEDS ORDERED: oxyCODONE IR 5 MG TAB PO PRN (15:09)
--- NOTE | 2017-07-05 15:38 | GHP ---
[f rep st] HISTORY AND PHYSICAL DATE OF ADMISSION: 07/05/2017 CHIEF COMPLAINT: Abdominal pain, constipation. HISTORY OF PRESENT ILLNESS: The patient is a 66-year-old female with recent diagnosis of metastatic peritoneal cancer, who is on chronic opioids for pain control, who presents to the hospital for dire t admission due to worsening constipation. Her last CT scan was June 19, 2017, which showed evid ence of peritoneal carcinomatosis as well as a liver mass. She was hospitalized shortly thereafter a nd underwent biopsy of the mass in the hepatic region. This showed to be consistent with either ovar dick versus peritoneal origin. A transvaginal ultrasound was then done and showed no evidence of an o varian mass. Furthermore, her pain has been all upper abdominal; she has had no pelvic pain or evide nce of ovarian masses. She is followed by Dr. Sekou Mallory at the [facility] in [facility]. She recently underwent chemotherapy with Taxol and carboplatin. She takes morphine 15 mg 3 times daily with p.r.n. oxycodone for pain control and has had worsening constipation. She describes her recent stools have been ribbonlike. She does have flatus. She denies nausea and vomiting. She has had no fevers. Despite decreased oral intake, she states her weight has been stable. She is di rectly admitted to the hospital for further evaluation and management of her constipation. PAST MEDICAL HISTORY: 1. Metastatic peritoneal cancer. 2. Constipation. 3. Chronic opioid use. 4. Right pleural effusion. 5. Depression. 6. Hypothyroidism. MEDICATIONS: Please see [place] for completed outpatient medication list. ALLERGIES: No known drug allergies. FAMILY HISTORY: Negative for cancer. 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 Her is at the bedside; he is also a ret formerly [employer] peer counselor. She denies tobacco and alcohol use. She has been training for the [employer] a nd unfortunately her symptoms began during her marathon training. She lives independently and is abl e to perform all her ADLs. REVIEW OF SYSTEMS: A 10-point review of systems was performed and is negative except as per HPI. OBJECTIVE: VITAL SIGNS: Temperature is 37.2, blood pressure 126/68, heart rate 80, respiratory rate 18, and she is 94% in room air. GENERAL: Patient is awake, alert, oriented, and in no acute distre ss. HEENT: Head is atraumatic, normocephalic. Pupils equal, round, and reactive to light. Extraoc ular motions intact. Oropharynx clear. Mucous membranes are moist. NECK: Supple. There is no JVD . HEART: Regular rate and rhythm without murmur. LUNGS: Clear to auscultation bilaterally. ABDOM EN: Soft, mildly distended with mild tenderness to palpation in both upper quadrants and epigastrium , worse in the right upper quadrant, without rebound, rigidity, or guarding. She is mildly tympaniti c to percussion. EXTREMITIES: Without cyanosis, clubbing, or edema. NEUROLOGIC: Grossly nonfocal. LABORATORY DATA: CBC and CMP were sent stat, currently pending. CT abdomen and pelvis with contrast is ordered and currently pending. ASSESSMENT/PLAN: The patient is a 66-year-old female with history of metastatic peritoneal cancer, w ho is admitted to the hospital for management of constipation. 1. Constipation: This is likely opioid-induced constipation. It has not responded to frequent stim ulant and osmotic laxatives at home. Will hold her laxatives and give a dose of Relistor. Will cont inue stool softeners and will also add soapsuds enema. If she does not respond to Relistor within a couple days, would add back laxative regimen. We discussed imaging with a KUB versus CT scan. The p atient would really rather undergo CT scan to evaluate for the possibility of malignant obstructive p rocess. A CT abdomen and pelvis with contrast is ordered. 2. Peritoneal cancer with metastasis to the liver and lung: CT scan is consistent with peritoneal c arcinomatosis. Patient recently underwent Taxol/carboplatin chemotherapy. She is followed by Dr. Joseph Mallory, who will consult during this hospitalization. I discussed the case with him on admission . Will continue pain control with her current outpatient regimen of morphine and oxycodone. 3. History of depression: Will resume her outpatient medications, including citalopram and Wellbutr in once her med rec is completed. 4. Hypothyroidism: Will continue her outpatient levothyroxine. CODE STATUS: Full code. DEEP VEIN THROMBOSIS PROPHYLAXIS: Patient is high risk with her cancer. Will give Lovenox. DISPOSITION: Patient admitted to observation status. If her symptoms resolve, she could be a candid ate for discharge tomorrow; otherwise will make change to inpatient. /[id number]/MODL
[2017-07-05 15:46] LABS: PLATELET COUNT 282 10^3/uL (150-400)
[2017-07-05] MEDS: morphINE SR 15 MG TAB PO SCH ×3 (16:35→17:33)
[2017-07-05] MEDS ORDERED: NS 1,000 ML IV SCH (17:30)
--- NOTE | 2017-07-05 17:44 | GHP ---
[f rep st] HISTORY AND PHYSICAL DATE OF ADMISSION: 07/05/2017 HISTORY OF PRESENT ILLNESS: The patient is a pleasant 66-year-old female who was recently diagnosed with primary peritoneal carcinoma. [facility] with abdo siobhan pain. A CT scan of the abdomen and pelvis done at that time revealed evidence of peritoneal ca rcinomatosis with disease predominantly surrounding the liver, including a large mass between the crescencio phragm and the liver. This was the source of her abdominal pain. The patient was recently seen in the outpatient setting. She received her 1st dose of palliative Tax ol carboplatin on of last week (June 27). She tolerated therapy without any significant lucretia e effects. Since her 1st cycle of treatment, she has noted a significant improvement in her right up per quadrant abdominal pain. The patient is using narcotic pain medication. She takes morphine 15 m g in the morning and afternoon and 30 mg in the evening with p.r.n. oxycodone. She has only been req uiring 1 to 2 oxycodone tablets per day. The patient unfortunately has not had a bowel movement for approximately 15 days. She has tried mult iple outpatient regimens including MiraLAX and more recently lactulose. She is admitted for constipa tion that has failed outpatient management. The patient denies any nausea, vomiting. She has minima l abdominal distention. She is passing flatus. When seen this evening, she is accompanied by her elvis ty. PAST MEDICAL HISTORY: 1. Recent diagnosis of primary peritoneal carcinoma. 2. Right pleural effusion and right lower lobe pulmonary nodule, likely secondary to #1. 3. History of depression. 4. Hypothyroidism. ALLERGIES: Patient has no known drug allergies. FAMILY MEDICAL HISTORY: Negative for malignancy. 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 Her is a retired inte rna medicine physician as well. The patient has a grown daughter. She is a nonsmoker. She is quit e active, participating in marathons, and most recently ran the [employer] in January of last y ear. REVIEW OF SYSTEMS: As outlined above. Remainder of 10-point review of systems otherwise negative. PHYSICAL EXAMINATION: GENERAL: The patient is in no acute distress and appears to be in less pain t mc[place]osh prior to receiving chemotherapy approximately 1 week ago. HEART: Regular without murmur. LUNGS : Clear bilaterally without wheeze or rhonchi. ABDOMEN: Soft, mildly distended. No fluid wave. N ormoactive bowel sounds. There is persistent right upper quadrant tenderness, but significantly impr beatriz compared to prior to chemotherapy. No palpable abdominal mass. EXTREMITIES: No extremity swel ling or edema. NEUROLOGIC: Patient alert, oriented, and appropriate. LABORATORY DATA: CBC from today: White count 2.3, hemoglobin 9.3, hematocrit 28.3, platelet count 2 82,000, absolute neutrophil count is 1000. Sodium 132, potassium 4.4, chloride 95, bicarb 31, BUN 11 , creatinine 0.7, calcium 8.7, total bilirubin is 0.4, AST 23, ALT 31, alkaline phosphatase 106, albu min 3.1. IMPRESSION: 1. Primary peritoneal carcinoma, status post 1st cycle of paclitaxel, carboplatin June 27, 2017. 2. Narcotic-induced constipation, refractory to outpatient management. 3. Known right lower lobe pulmonary nodule, likely representing metastatic involvement from #1. 4. Chemotherapy-induced pancytopenia. The patient is a pleasant 66-year-old female with a recent diagnosis of primary peritoneal carcinoma. She has received her 1st cycle of palliative paclitaxel and carboplatin. I am encouraged by the fa irly significant improvement in her right upper quadrant abdominal pain, which suggests treatment res ponse. The patient appears to have narcotic-induced constipation and has not had a bowel movement fo r over 15 days. Her constipation has been refractory to outpatient management, which has included saúl th lactulose and MiraLAX as well as Fleet enemas. CT of the abdomen and pelvis with oral and IV cont rast has been ordered to exclude a bowel obstruction, which I think is of low likelihood based on her exam and history. This will be done this evening. I have discussed the case with Dr. Cat Brandon of the hospitalist service. We will give the patien t a dose of Relistor, as I think her constipation is likely in part related to her chronic narcotic u se. The patient will receive a soapsuds enema once her CT has confirmed no obstruction. Hopefully t he combination of Relistor and an enema will relieve her constipation. If her constipation is able t o be resolved, she will be discharged home tomorrow with outpatient followup as planned. Her pain is significantly better, suggesting a response to her ongoing therapy. I am hopeful that if her pain continues to improve, we can wean her off narcotics in the near future. Current plan for her primary peritoneal cancer is 3 cycles of Taxol/carboplatin followed by restaging CT scans. If a significant response is documented, she will proceed with a primary debulking surger y with Dr. Arina Chicas at [facility]. I discussed the above plan with the patient and her . Their questions were answered. I also discussed her case with Dr. Brandon of the hospitalist service. Total time for today's visit was approximately 35 minutes, of which greater than 50% was spent in cou nseling and care coordination. /[id number]/MODL
[2017-07-05 19:25] VITALS: RESP 16
[2017-07-05] MEDS ORDERED: morphINE SR 15 MG TAB PO SCH (21:00)
[2017-07-05] MEDS ORDERED: DIAZEPAM 5 MG TAB PO SCH (21:00)
[2017-07-05] MEDS: DOCUSATE SODIUM 100 MG CAP PO SCH (22:07)
[2017-07-06] MEDS ORDERED: LEVOTHYROXINE 50 MCG TAB PO SCH (06:00)
[2017-07-06 07:47] VITALS: BP 101/59; PULSE 79; TEMP 98.1; O2SAT 93
[2017-07-06] MEDS: DOCUSATE SODIUM 100 MG CAP PO SCH (07:58)
[2017-07-06] MEDS: morphINE SR 15 MG TAB PO SCH (07:59)
[2017-07-06] MEDS ORDERED: ACYCLOVIR 400 MG TAB PO SCH (09:00)
[2017-07-06] MEDS ORDERED: CITALOPRAM 20 MG TAB PO SCH (09:00)
[2017-07-06] MEDS ORDERED: ENOXAPARIN 40 MG/0.4 ML SYR SC SCH (09:00)
[2017-07-06] MEDS ORDERED: NON-FORMULARY NEW DRUG (Citalopram Hydrobromide [Citalopram Hbr] 40 MG) PO SCH (09:00)
[2017-07-06] MEDS ORDERED: buPROPion XL 150 MG TAB PO SCH (09:00)
[2017-07-06] MEDS ORDERED: NON-FORMULARY NEW DRUG (Bupropion Hcl [Wellbutrin Xl] 300 MG) PO SCH (09:00)
--- NOTE | 2017-07-06 09:44 | ASMTCMCOM ---
CM Note CM Note Notes: Spoke w/RN, anticipate pt will dc home w/support of when medically stable. CM available for any changes. DC Plan: Independent Date Signed: 07/06/2017 09:43 AM Electronically Signed By:Tala Atwood RN
--- NOTE | 2017-07-06 10:44 | HOSPPROG ---
Hospitalist Progress Note Assessment/Plan: 66 yo F w recently diagnosed primary peritoneal carcinoma admitted w severe constipation now resolved home today see dc summary Subjective: moved bowels. ready for dc Objective: Vital Signs Temp Pulse Resp BP Pulse Ox 36.7 C 79 16 101/59 L 93 07/06/17 07:46 07/06/17 07:46 07/06/17 07:46 07/06/17 07:46 07/06/17 07:46 Laboratory Results 07/05/17 15:30 07/05/17 15:30 07/05/17 07/06/17 07/07/17 05:59 05:59 06:59 Intake Total 300 Balance 300 - Physical Exam Constitutional: no apparent distress, appears nourished Eyes: PERRL, anicteric sclera Ears, Nose, Mouth, Throat: moist mucous membranes, hearing normal Cardiovascular: regular rate and rhythym, no murmur, rub, or gallop Respiratory: no respiratory distress, no rales or rhonchi Gastrointestinal: normoactive bowel sounds, soft, non-tender abdomen, No guarding, No rebound Genitourinary: no bladder fullness, pardo in urethra Skin: warm, normal color Musculoskeletal: full muscle strength ICD10 Worksheet Patient Problems: Problems Problem Status Onset Hypoxemia Acute Malignancy Acute Right-sided chest pain Acute
--- NOTE | 2017-07-06 10:56 | GDS ---
[f rep st] DISCHARGE SUMMARY DISCHARGE DIAGNOSIS: 1. Primary peritoneal carcinoma. 2. Severe constipation. CONSULTATIONS DURING THIS ADMISSION: Oncology. PROCEDURES: CT scan of the abdomen showed constipation without obstruction. The patient underwent m oderate dilated loops of large bowel with stool consistent with constipation and ileus. She also had stable heterogeneous liver masses around the liver. The patient underwent aggressive bowel regimen with multiple large bowel movements with a great deal of symptomatic improvement. She is discharged home. She is advised to take MiraLAX daily to as much as three times daily, depending on her level o f constipation. 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 /[id number]/MODL
== END 2017-07-06 11:46 | disposition home or self-care (01) ==
LOC: F3E 14:24
PROVIDERS: ADMIT Student in an Organized Health Care Education/Training Program; ATTEND Student in an Organized Health Care Education/Training Program
DX: C48.2 Malignant neoplasm of peritoneum, unspecified (principal); K59.00 Constipation, unspecified
CPT/HCPCS: G0378; J1650; J2212